=== PATIENT | male | born 1995 | race Caucasian/White ===

== ENCOUNTER 2017-08-18 02:53 | Emergency (ER) | payer BC ==
[~2017-08-18] VITALS: Ht 175.3 cm; Wt 133.8 kg
[2017-08-18 02:55] VITALS: BP 133/87
--- NOTE | 2017-08-18 03:02 | ER Report ---
History and Physical Time Seen By MD: 02:53 HPI/ROS CHIEF COMPLAINT: Intermediate clearance HISTORY OF PRESENT ILLNESS: 22-year-old male brought in by police for skilled nursing clearance. Patient denies significant past medical history. He denies any injuries. He missed alcohol consumption. His speech is slurred, consistent with his history. REVIEW OF SYSTEMS: Respiratory: No cough, no dyspnea. Cardiovascular: No chest pain, no palpitations. Gastrointestinal: No vomiting, no abdominal pain. Musculoskeletal: No back pain. Allergies: Coded Allergies: No Known Drug Allergies (Unverified , 08/18/17) Home Meds No Active Prescriptions or Reported Meds Reviewed Nurses Notes: Yes Old Medical Records Reviewed: Yes Constitutional Vital Sign - Last 24 Hours 08/18/17 02:55 Temp 98.7 Pulse 106 Resp 16 B/P (MAP) 133/87 Pulse Ox 95 O2 Delivery Room Air Physical Exam General Appearance: The patient is alert, has no immediate need for airway protection and no current signs of toxicity. Palpation of the head and neck reveals no tenderness or trauma HEENT: Pupils equal and round no injection. Respiratory: Chest is non tender, lungs are clear to auscultation. No chest wall tenderness Cardiac: regular rate and rhythm Gastrointestinal: Abdomen is soft and non tender, no masses, bowel sounds normal. Musculoskeletal: Neck: Neck is supple and non tender. Extremities have full range of motion and are non tender. Skin: No rashes or lesions. DIFFERENTIAL DIAGNOSIS: After history and physical exam differential diagnosis was considered for alcohol intoxication, skilled nursing clearance, polysubstance abuse Medical Decision Making ED Course/Re-evaluation ED Course Patient was minute to an examination room. H&P was done. The differential diagnoses was considered. On clinical examination. Patient voices no complaints. He has no injuries. On examination his vital signs are stable. He is medically cleared for skilled nursing admission Decision to Disposition Date: Aug 18, 2017 Decision to Disposition Time: 02:59 Depart Departure Latest Vital Signs Vital Signs Date Time Temp Pulse Resp B/P (MAP) Pulse Ox O2 Delivery O2 Flow Rate FiO2 08/18/17 02:55 98.7 106 16 133/87 95 Room Air Impression: Primary Impression: Medical clearance for incarceration Additional Impression: Alcohol intoxication Condition: Improved Disposition: [facility] TO LONG TERM/CORRECTIONAL F New Scripts No Active Prescriptions or Reported Meds Patient Instructions: Alcohol Intoxication (ED) Additional Instructions: Medical clear for skilled nursing admission Problem Qualifiers Additional Impression: Alcohol intoxication Complication of substance-induced condition: uncomplicated Qualified Codes: F10.920 - Alcohol use, unspecified with intoxication, uncomplicated LAILA COLE DO Aug 18, 2017 03:02
== END 2017-08-18 03:08 ==
LOC: ER 03:04
DX: F10.920 Alcohol use, unspecified with intoxication, uncomplicated (principal)
CPT/HCPCS: 99282